=== PATIENT | female | born 1980 | race Caucasian/White ===

== ENCOUNTER → 2018-12-16 09:40 | Outpatient (CLI) | payer OTHER, SELFPAY ==
--- NOTE | 2018-12-16 | DI.US.S_ITS ---
PROCEDURE: US PELVIC COMPLETE INDICATIONS: PELVIC PAIN TECHNIQUE: Real-time scanning was performed of the pelvic organs, with image documentation. Additional endovaginal scanning was necessary due to incomplete visualization of the adnexal and endometrial structures by transabdominal scanning. COMPARISON: [facility], [place], PELVIC COMPLETE, 03/10/2013, 14:19. [facility], [place], PELVIC COMPLETE, 12/22/2013, 14:10. FINDINGS: Transabdominal scanning: Limited scanning through the kidneys shows no hydronephrosis. No pathologic free abdominal or pelvic fluid. Endovaginal scanning: Uterus: Uterus is normal in size at 8.8 x 4.7 x 5.2 cm. The endometrium measures 6 mm in combined thickness. Ovaries: Right ovary is enlarged measuring 5.1 x 2.8 x 4.5 cm. Right ovary demonstrates hyeroechoic echotexture suggesting a mass. Left ovary measures 2.2 x 2.1 x 2.6 mm and demonstrates normal echotexture. IMPRESSION: 1. Enlargement of right ovary demonstrating increased echotexture suggesting a mass. The ultrasound appearance suggests an ovarian dermoid but malignant overian neoplasm cannot be excluded. A gynecological MRI is suggested for further evaluation. 2. Normal uterus and left ovary. Dictated by: Laquita Bonner M.D. on 12/16/2018 at 17:17 Approved by: Laquita Bonner M.D. on 12/16/2018 at 17:25
== END ==
PROVIDERS: PCP Family Medicine; Visit Provider Family Medicine
DX: R10.2 Pelvic and perineal pain (principal); N83.8 Other noninflammatory disorders of ovary, fallopian tube and broad ligament
CPT/HCPCS: 76830; 76856